=== PATIENT | female | born 1995 | race Caucasian/White ===

== ENCOUNTER 2016-09-29 10:31 | Emergency (ER) | payer SELFPAY ==
[~2016-09-29] VITALS: Ht 170.2 cm; Wt 62.9 kg
[2016-09-29 10:31] VITALS: BP 107/62
[2016-09-29] MEDS ORDERED: MEDR1VL IM (11:03)
[2016-09-29] MEDS ORDERED: NAPR500T3 PO (11:03)
[2016-09-29] MEDS ORDERED: NAPR500T PO (11:45)
== END 2016-09-29 11:52 | disposition home or self-care (01) ==
LOC: M ED 10:31
DX: H00.014 Hordeolum externum left upper eyelid (principal); Z79.899 Other long term (current) drug therapy